=== PATIENT | female | born 1990 | race Caucasian/White ===

== ENCOUNTER 2018-07-08 17:23 | Emergency (ER) | payer OTHER ==
[~2018-07-08] VITALS: Ht 165.1 cm; Wt 86.5 kg
[2018-07-08 17:29] VITALS: BP 153/80; PULSE 68; RESP 17; Ht 165.1 cm; Wt 86.5 kg
--- NOTE | 2018-07-08 21:49 | ERD ---
ER Documentation Chief Complaint Chief Complaint X 1 day of deepika pelvic pain; states heavy menses yesterday HPI 28-year-old female presents for bilateral pelvic pain and heavy vaginal bleeding times 1 day. States that she was passing clots and has a change pads every 15 minutes. She does have a history of anemia, PCOS and is currently taking metformin and on clomiphene to get . She has been on this medication in the past. Denies any fevers or chills. She states that she has dizziness. The pelvic pain is noted to be 8 out of 10, intermittent. ROS All systems reviewed and are negative except as per history of present illness. Allergies Allergies: Coded Allergies: No Known Allergy (Unverified , 07/08/18) PMhx/Soc Medical and Surgical Hx: pt denies Medical Hx, pt denies Surgical Hx Physical Exam Vitals Vital Signs Date Temp Pulse Resp B/P (MAP) Pulse Ox O2 O2 Flow FiO2 Time Delivery Rate 07/08/18 99.0 68 17 153/80 100 17:29 (104) Physical Exam Const: No acute distress Resp: Clear to auscultation bilaterally Cardio: Regular rate and rhythm, no murmurs Abd: Soft, non distended. Normal bowel sounds, mild bilateral pelvic tenderness to palpation, no McBurney's point tenderness, no Adler sign, no rebound or guarding noted Skin: No petechiae or rashes Back: No midline or flank tenderness Ext: No cyanosis, or edema Neur: Awake and alert Psych: Normal Mood and Affect Result Diagram: 07/08/18200407/08/182004 Results 24 hrs Laboratory Tests Test 07/08/18 20:05 07/08/18 20:11 07/08/18 20:12 White Blood Count 12.2 10^3/ul Red Blood Count 4.03 10^6/ul Hemoglobin 10.8 g/dl Hematocrit 33.9 % Mean Corpuscular Volume 84.1 fl Mean Corpuscular Hemoglobin 26.8 pg Mean Corpuscular 31.9 g/dl Hemoglobin Concent Red Cell Distribution Width 14.0 % Platelet Count 319 10^3/UL Mean Platelet Volume 9.4 fl Immature Granulocytes % 0.500 % Neutrophils % 62.7 % Lymphocytes % 28.6 % Monocytes % 5.5 % Eosinophils % 2.2 % Basophils % 0.5 % Nucleated Red Blood Cells % 0.0 /100WBC Immature Granulocytes # 0.060 10^3/ul Neutrophils # 7.7 10^3/ul Lymphocytes # 3.5 10^3/ul Monocytes # 0.7 10^3/ul Eosinophils # 0.3 10^3/ul Basophils # 0.1 10^3/ul Nucleated Red Blood Cells # 0.0 10^3/ul Urine Color YELLOW Urine Clarity SLIGHTLY CLOUDY Urine pH 7.0 Urine Specific [place] 1.023 Urine Ketones NEGATIVE mg/dL Urine Nitrite NEGATIVE mg/dL Urine Bilirubin NEGATIVE mg/dL Urine Urobilinogen NEGATIVE mg/dL Urine Leukocyte Esterase TRACE Carly/ul Urine Microscopic RBC > 182 /HPF Urine Microscopic WBC 2 /HPF Urine Squamous Epithelial Cells FEW /HPF Urine Mucus FEW /HPF Urine Hemoglobin 3+ mg/dL Urine Glucose NEGATIVE mg/dL Urine Total Protein NEGATIVE mg/dl Sodium Level 142 mmol/L Potassium Level 3.7 mmol/L Chloride Level 103 mmol/L Carbon Dioxide Level 29 mmol/L Anion Gap 10 Blood Urea Nitrogen 18 mg/dl Creatinine 0.72 mg/dl Est Glomerular Filtrat > 60 mL/min Rate mL/min Glucose Level 95 mg/dl Calcium Level 9.7 mg/dl Total Bilirubin 0.3 mg/dl Direct Bilirubin 0.00 mg/dl Indirect Bilirubin 0.3 mg/dl Aspartate Amino Transf (AST/SGOT) 53 IU/L Alanine 60 IU/L Aminotransferase (ALT/SGPT) Alkaline Phosphatase 63 IU/L Total Protein 8.7 g/dl Albumin 4.9 g/dl Globulin 3.80 g/dl Albumin/Globulin Ratio 1.28 Bedside Urine pH (LAB) 7.0 Bedside Urine Protein (LAB) 1+ Bedside Urine Glucose (UA) Negative Bedside Urine Ketones (LAB) Negative Bedside Urine Blood 2+ Bedside Urine Nitrite (LAB) Negative Bedside Urine Leukocyte Esterase Trace (L POC Beta HCG, Qualitative NEGATIVE Procedures/MDM Medical Decision Making: Differential diagnosis includes but not limited to dysfunctional uterine bleeding, clomiphene side effect, uterine fibroid, ovarian cyst Patient appeared well on physical exam. There was some pelvic tenderness palpation. Patient did not want any pain medication while in the ER. CBC: no e/o of severe anemia, hemoglobin noted to be 10, mild elevated WBC 12 CMP: no e/o severe acidosis, alkalosis, renal failure, diabetic ketoacidosis, liver disease UA negative for infection Pelvic ultrasound was unremarkable, there is no ovarian cyst noted, no fibroids noted Patient advised that she will need to follow-up with [facility] as the vaginal bleeding could be due to medication side effect. Possibility of ovarian torsion was considered however the pain had improved while patient was in the ER without medication. Patient advised to follow up with PCP in 1-2 days. Patient advised to return to ED for new or worsening symptoms. Patient stable on discharge from the ED. Disclaimer: Inadvertent spelling and grammatical errors are likely due to EHR/dictation software use and do not reflect on the overall quality of patient care. Also, please note that the electronic time recorded on this note does not necessarily reflect the actual time of the patient encounter. Departure Diagnosis: Primary Impression: Vaginal bleeding Additional Impression: Acute pain in female pelvis Condition: Fair Patient Instructions: Understanding Uterine Bleeding Additional Instructions: Call your primary care doctor TOMORROW for an appointment during the next 1-2 days.See the doctor sooner or return here if your condition worsens before your appointment time. RODGER FERNÁNDEZ DO Jul 08, 2018 21:49
== END 2018-07-08 21:46 | disposition home or self-care (01) ==
LOC: FTE 17:23
DX: N93.9 Abnormal uterine and vaginal bleeding, unspecified (principal)
CPT/HCPCS: 36415; 76830; 76856; 80053; 81001; 81025; 85025; Z7502; 81003

== ENCOUNTER 2018-10-10 16:35 | Emergency (ER) | payer OTHER ==
[~2018-10-10] VITALS: Ht 167.6 cm; Wt 87.0 kg
[2018-10-10 16:44] VITALS: Ht 167.6 cm; Wt 87.0 kg
--- NOTE | 2018-10-10 18:31 | ERD ---
ER Documentation Chief Complaint Chief Complaint vagina bleeding bright red x1mth, unk if HPI 28-year-old female G1, P1, presents to the emergency department, complaining of 1 month with intermittent mild vaginal bleeding, associated with pelvic discomfort. The patient is currently on Clomiphene for infertility and has an appointment with her [facility] on 10/25/2018. The patient has history of anemia and PCOS as well. Additionally, the patient reports increased fatigue on exertion and palpitations. She denies chest pain, no shortness of breath, no distal weakness, no headache, no nausea or vomiting. ROS All systems reviewed and are negative except as per history of present illness. Allergies Allergies: Coded Allergies: No Known Allergy (Unverified , 07/08/18) PMhx/Soc Anemia Polycystic ovarian syndrome Medical and Surgical Hx: pt denies Surgical Hx History of Surgery: No Anesthesia Reaction: No Hx Neurological Disorder: No Hx Respiratory Disorders: No Hx Cardiac Disorders: No Hx Psychiatric Problems: No Hx Miscellaneous Medical Probl: No Hx Alcohol Use: No Hx Substance Use: No Hx Tobacco Use: No FmHx Family History: No diabetes, No coronary disease Physical Exam Vitals Vital Signs Date Temp Pulse Resp B/P (MAP) Pulse Ox O2 O2 Flow FiO2 Time Delivery Rate 10/10/18 98.2 105 18 121/65 100 Room Air 20:27 (83) 10/10/18 98.3 116 18 147/90 100 16:44 (109) Physical Exam Const: No acute distress, pale looking. Head: Atraumatic Eyes: Normal Conjunctiva ENT: Normal External Ears, Nose and Mouth. Neck: Full range of motion. No meningismus. Resp: Clear to auscultation bilaterally Cardio: Regular rate and rhythm, no murmurs Abd: Soft, non tender, non distended. Normal bowel sounds Skin: No petechiae or rashes Back: No midline or flank tenderness Ext: No cyanosis, or edema Neur: Awake and alert Psych: Normal Mood and Affect Result Diagram: 10/10/181917 Results 24 hrs Laboratory Tests Test 10/10/18 18:54 10/10/18 18:56 10/10/18 19:18 POC Beta HCG, Qualitative NEGATIVE Bedside Urine pH (LAB) 6.0 Bedside Urine Protein (LAB) 1+ Bedside Urine Glucose (UA) Negative Bedside Urine Ketones (LAB) Negative Bedside Urine Blood 3+ Bedside Urine Nitrite (LAB) Negative Bedside Urine Leukocyte Esterase (L Negative White Blood Count 10.1 10^3/ul Red Blood Count 2.47 10^6/ul Hemoglobin 5.8 g/dl Hematocrit 19.2 % Mean Corpuscular Volume 77.7 fl Mean Corpuscular Hemoglobin 23.5 pg Mean Corpuscular Hemoglobin Concent 30.2 g/dl Red Cell Distribution Width 14.3 % Platelet Count 363 10^3/UL Mean Platelet Volume 9.6 fl Immature Granulocytes % 1.600 % Neutrophils % % Segmented Neutrophils % (Manual) 63 % Lymphocytes % % Lymphocytes % (Manual) 35 % Monocytes % % Monocytes % (Manual) 2 % Eosinophils % % Basophils % % Nucleated Red Blood Cells % 1 % Immature Granulocytes # 0.160 10^3/ul Neutrophils # 10^3/ul Lymphocytes (Manual) 3.5 10^3/ul Lymphocytes # 10^3/ul Monocytes # 10^3/ul Monocytes # (Manual) 0.2 10^3/ul Eosinophils # 10^3/ul Basophils # 10^3/ul Nucleated Red Blood Cells # 10^3/ul Pathologist Review (Hematology) YES Polychromasia 1+ Anisocytosis 3+ Microcytosis 3+ Target Cells 1+ Procedures/MDM Vital signs stable, Physical exam unremarkable, abdomen soft, nontender. Patient hemodynamically stable despite profound anemia. Differential diagnosis include but not limited to: , ovarian cyst, fibroids, endometriosis, malignancy, dysfunctional bleeding, hematologic condition. Low suspicion for PID, no signs of hypovolemic shock. Pertinent Data: test: Negative Labs: CBC: Profound anemia. Physical examination and clinical presentation consistent most likely with symptomatic anemia most likely secondary dysfunctional uterine bleeding. During the ED course the patient remained stable, no new complaints. The patient is a candidate for a blood transfusion; however, at this time, she prefers to deferred the transfusion, she will talk to her and she will come back to the hospital in case that they agree with the procedure. The risks and possible medical complications of severe anemia were discussed with the patient in front of her mother. Results and clinical impression discussed with patient. The patient is stable to be treated outpatient and will be discharged home with instructions to return to the ER for transfusion. Instructions explained and given directly by me to the patient with ack nowledgment and demonstrated understanding. Disclaimer: Inadvertent spelling and grammatical errors are likely due to EHR/dictation software use and do not reflect on the overall quality of patient care. Also, please note that the electronic time recorded on this note does not necessarily reflect the actual time of the patient encounter. Departure Diagnosis: Primary Impression: Abnormal uterine bleeding Additional Impression: Symptomatic anemia Condition: Stable Patient Instructions: Anemia Additional Instructions: Thank you very much for allowing us to participate in your care. Your health and safety is our top priority at [facility]. Please remember that your hemoglobin is very low and you need a transfusion to improve your symptoms, we understand that you are not ready today, but please, consider to return tomorrow for a blood transfusion. The evaluation in the emergency department has been done to rule out an acute emergency. Chronic, [id number] conditions may have not been evaluated; therefore, you need to follow up with a primary care provider in the next 48h. If symptoms persist, worsen or new symptoms develop, then patient should return to the ED immediately. Call your primary care doctor TOMORROW for an appointment during the next 2-4 days and bring all the information provided. If the symptoms get worse and your provider is unavailable, return to the Emergency Department immediately. CAMELIA PERES MD Oct 10, 2018 18:31
[2018-10-10 20:27] VITALS: BP 121/65; PULSE 105; RESP 18
== END 2018-10-10 20:28 | disposition home or self-care (01) ==
LOC: FTE 16:35
DX: N93.8 Other specified abnormal uterine and vaginal bleeding (principal); D64.9 Anemia, unspecified
CPT/HCPCS: 76830; 76856; 81003; 81025; 85025; Z7502

== ENCOUNTER 2018-10-12 18:50 | Emergency (ER) | payer SELFPAY ==
[~2018-10-12] VITALS: Ht 165.1 cm; Wt 89.1 kg
[2018-10-12 18:59] VITALS: BP 149/67; PULSE 131; RESP 16; Ht 165.1 cm; Wt 89.1 kg
[2018-10-13] MEDS ORDERED: FER325 PO (13:40)
== END 2018-10-12 21:44 | disposition left against medical advice (07) ==
LOC: E/R 18:50
DX: Z53.21 Procedure and treatment not carried out due to patient leaving prior to being seen by health care provider (principal)

== ENCOUNTER 2018-10-13 06:56 | Emergency (ER) | payer OTHER ==
[~2018-10-13] VITALS: Ht 165.1 cm; Wt 89.0 kg
[2018-10-13 07:01] VITALS: Ht 165.1 cm; Wt 89.0 kg
[2018-10-13] MEDS ORDERED: SOD CHLORIDE 0.9% 0 ML IV ONE (07:50)
--- NOTE | 2018-10-13 08:10 | ERD ---
ER Documentation Chief Complaint Chief Complaint send by pmd for blood transfusion, hgb 7.4, feels weak HPI 28-year-old female who presents to the emergency room complaining of menorrhagia with a reported hemoglobin in the 5 range. The patient has been feeling signs and symptoms consistent with anemia including dyspnea on exertion, generalized fatigue and malaise. She notes heavy menstrual cycle over the last 1-2 cycles. It has been irregular. The patient was trying Clomid but has since discontinued this. The patient states no further vaginal bleeding over the past 24 to 48 hours. ROS All systems reviewed and are negative except as per history of present illness. Medications Home Meds Active Scripts Ferrous Sulfate* (Ferrous Sulfate*) 325 Mg Tabec, 325 MG PO DAILY for 30 Days, TAB Prov:SALLIE MCCORMICK MD 10/13/18 Allergies Allergies: Coded Allergies: No Known Allergy (Unverified , 10/13/18) PMhx/Soc Medical and Surgical Hx: pt denies Medical Hx, pt denies Surgical Hx History of Surgery: No Anesthesia Reaction: No Hx Neurological Disorder: No Hx Respiratory Disorders: No Hx Cardiac Disorders: No Hx Psychiatric Problems: No Hx Miscellaneous Medical Probl: No Hx Alcohol Use: No Hx Substance Use: No Hx Tobacco Use: No Smoking Status: Never smoker FmHx Family History: No diabetes Physical Exam Vitals Vital Signs Date Temp Pulse Resp B/P (MAP) Pulse Ox O2 O2 Flow FiO2 Time Delivery Rate 10/13/18 98.1 102 18 122/57 99 Room Air 07:19 (78) 10/13/18 98.1 102 18 122/57 99 07:01 (78) Physical Exam General: Well developed, well nourished, no acute distress Head: Normocephalic, atraumatic. Eyes: Pupils equally reactive, EOM intact, pale conjunctiva ENT: Moist mucous membranes Neck: Supple, no lymphadenopathy Respiratory: Lungs clear bilaterally, no distress Cardiovascular: RRR, no murmurs, rubs, or gallops Abdominal: Soft, non-tender, non-distended, no peritoneal signs : Deferred MSK: No edema, no unilateral swelling, 5/5 strength Neurologic: Alert and oriented, moving all extremities, normal speech, no focal weakness, no cerebellar signs Skin: No rash Psych: Normal mood Result Diagram: 10/13/1873810/13/18738 Results 24 hrs Laboratory Tests Test 10/13/18 07:39 10/13/18 08:38 White Blood Count 11.4 10^3/ul Red Blood Count 2.50 10^6/ul Hemoglobin 5.6 g/dl Hematocrit 19.5 % Mean Corpuscular Volume 78.0 fl Mean Corpuscular Hemoglobin 22.4 pg Mean Corpuscular Hemoglobin Concent 28.7 g/dl Red Cell Distribution Width 14.8 % Platelet Count 376 10^3/UL Mean Platelet Volume 9.2 fl Immature Granulocytes % 2.600 % Neutrophils % 59.3 % Segmented Neutrophils % (Manual) 64 % Band Neutrophils % (Manual) 1 % Lymphocytes % 29.1 % Lymphocytes % (Manual) 29 % Monocytes % 5.4 % Monocytes % (Manual) 2 % Eosinophils % 3.2 % Eosinophils % (Manual) 2 % Basophils % 0.4 % Basophils % (Manual) 2 % Nucleated Red Blood Cells % 1.2 /100WBC Immature Granulocytes # 0.290 10^3/ul Neutrophils # 6.7 10^3/ul Neutrophils # (Manual) 7.3 10^3/ul Band Neutrophils # 0.1 10^3/ul Lymphocytes (Manual) 3.3 10^3/ul Lymphocytes # 3.3 10^3/ul Monocytes # 0.6 10^3/ul Monocytes # (Manual) 0.2 10^3/ul Eosinophils # 0.4 10^3/ul Basophils # 0.1 10^3/ul Basophils # (Manual) 0.2 10^3/ul Nucleated Red Blood Cells # 0.1 10^3/ul Pathologist Review (Hematology) YES Platelet Estimate NORMAL Polychromasia 3+ Hypochromasia 1+ Anisocytosis 3+ Microcytosis 3+ Prothrombin Time 12.7 Sec Prothrombin Time Ratio 1.0 INR International Normalized Ratio 0.94 Activated Partial Thromboplast Time 25.9 Sec Sodium Level 142 mmol/L Potassium Level 4.0 mmol/L Chloride Level 105 mmol/L Carbon Dioxide Level 24 mmol/L Anion Gap 13 Blood Urea Nitrogen 9 mg/dl Creatinine 0.59 mg/dl Est Glomerular Filtrat Rate mL/min > 60 mL/min Glucose Level 109 mg/dl Calcium Level 8.7 mg/dl POC Beta HCG, Qualitative NEGATIVE Current Medications Medications Dose Sig/Cade Start Time Status Last (Trade) Ordered Route PRN Stop Time Admin Dose Reason Admin Sodium 0 ml @ 0 Q0M ONCE 10/13/18 DC Chloride mls/hr IV 07:50 10/13/18 07:52 Procedures/MDM Oh LAB INTERPRETATION: I reviewed the laboratory testing and it shows anemia MEDICAL DECISION MAKING: Patient presents with symptomatic anemia in the setting of menorrhagia and irregular cycle. Unclear if truly related to the Clomid or alternative dysmenorrhea process. Anovulatory cycle possible. Patient has outpatient follow-up with [facility] in 2 weeks but is presenting because of persistent anemia. Patient was seen here on 10 10 for similar symptoms but refused transfusion at that time. She wanted a second opinion follow-up with her primary care physician. ER COURSE: * Patient's hemoglobin is 5.5 today. * I discussed with the patient and/or family the risks, benefits, alternatives of blood transfusion. This includes allergic reaction and infections including HIV and hepatitis. The patient and/or family were able to verbalize these risks, stated understanding. A document has been signed and placed in the chart. * The patient will be transfused 2 units of packed red blood cells. The patient feels strongly about not being admitted today. I will see if the patient can be evaluated by [facility] in the emergency room setting. She can receive 2 units of packed red blood cells and be safely discharged of transfusing as well. Patient understands the risk benefits alternatives and that the preferred method would be inpatient hospitalization but given the holiday she feels strongly about discharge. She understands the risk benefits and alternatives. I believe this can be an appropriate plan. * [facility] on-call Dr. Valdez notified. CONSULTATION: None DISPOSITION PLAN: Patient is finishing her second unit of packed red blood cells. Dr. Valdez is going to see the patient after surgical responsibilities. Anticipate discharge based on her assessment. Departure Diagnosis: Primary Impression: Symptomatic anemia Additional Impression: Menorrhagia Menorrahagia type: with irregular cycle Qualified Codes: N92.1 - Excessive and frequent menstruation with irregular cycle Condition: SALLIE Parks MD Oct 13, 2018 08:10
[2018-10-13] MEDS ORDERED: FER325 PO (13:40)
--- NOTE | 2018-10-13 16:20 | CONS ---
Assessment/Plan Assessment/Plan Problems: (1) Vaginal bleeding Status: Acute (2) Menorrhagia Status: Acute Qualifiers: Qualified Codes: N92.1 - Excessive and frequent menstruation with irregular cycle (3) Symptomatic anemia Status: Acute Assessment/Plan (Daily) Severe anemia due to continuous menometrorrhagia symptoms likely due to Hormonal factors and anovulatory cycles Patient does not have any active bleeding at this time. Her symptoms of anemia improved significantly after she received blood transfusion Patient is currently stable for discharge after blood transfusion considering her hemoglobin increased appropriately I discussed with the patient regarding taking OCP continuously for menstrual suppression After discharge from the emergency room The patient to take Loestrin continuously. Prescription was provided. Advised to take iron and stool softener twice a day. Recommended to have a follow-up after discharge from the hospital next week with her OB or sooner as needed Patient verbalized understanding. All questions were answered. Consultation Date/Type/Reason Admit Date/Time October 13, 2018 Date of Consultation: Oct 13, 2018 Type of Consult Gynecology consultation symptomatic anemia menometrorrhagia Reason for Consultation Severe anemia due to menometrorrhagia Date/Time of Note DATE: 10/13/18 TIME: 16:05 Hx of Present Illness 28-year-old G1, P1 presented to emergency room after she was referred by her primary care physician due to severe anemia. This is her second visit to emergency room. She had been seen last week due to heavy vaginal bleeding and menometrorrhagia. She refused blood transfusion at that time and was discharged home. Patient reports history of polycystic ovarian syndrome. Reports history of oligomenorrhea. She was diagnosed with PCOS and was given Metformin and Clomid for induction of ovulation since she desires fertility. Has been trying for for the last 1 and half years with no success. Reports stopped Clomid since August 2018 and stopped metformin since December. She never diagnosed with diabetes. Patient reports has been bleeding for the last month continuously every day. Has been soaking pads 4-5 pads a day. She reports was feeling fatigue and shortness of breath however his symptoms resolved after she received blood transfusion. Patient declined admission but agreed to proceed with blood transfusion. Patient has a APPLICATION MANAGER is outside that has been following with. Denies any known history of thyroid problem in the past. Cycles in the past was every 35 days last about 7 to 8 days with heavy flow. She denies any history of ovarian cyst, fibroids. Had a pelvic ultrasound in her prior presentation in the emergency room that showed homogeneous slightly thickened endometrium with normal ovaries otherwise nonsignificant. Patient currently denies any pelvic pain, abnormal vaginal discharge she reports her symptoms of anemia including fatigue. Significantly improved after she received blood transfusion. She reports her bleeding currently decreased. Subjective hx not possible: other (Patient is well historian. Speaks fluent Uzbek.) Constitutional: improved Eyes: No no complaints, No pain, No discharge, No redness, No visual change, No other ENT: No no complaints, No bleeding, No pain, No congestion, No discharge, No dysphagia, No sore throat, No other Respiratory: No no complaints, No pain, No cough, No pleuritic pain, No shortness of breath, No sputum, No wheezing, No other Cardiovascular: lightheadedness; No no complaints, No chest pain, No edema, No orthopenea, No palpitations, No paroxysmal nocturnal dyspnea, No other Gastrointestinal: No no complaints, No pain, No blood, No constipation, No decreased appetite, No diarrhea, No flatus, No nausea, No passing stool, No vomiting, No other Genitourinary: bleeding; No no complaints, No dysuria, No discharge, No flank pain, No hematuria, No other Musculoskeletal: No no complaints, No back pain, No bone/joint pain, No neck pain, No restricted range of motion, No swelling, No other Skin: No no complaints, No bruising, No erythema, No laceration, No pruritis, No rash, No skin lesions, No other Neurologic: No no complaints, No confusion, No dizziness, No focal-weakness, No headache, No syncope, No seizure, No other Endocrine: No no complaints, No polyuria, No polydypsia, No dry skin, No temp intolerance, No other Lymphatic: No no complaints, No adenopathy, No tender nodes, No lymphadema, No other Psychological: No no complaints, No nl mood/affect, No anxiety, No confusion, No depression, No suicidal, No other Immunologic: No no complaints, No immunodeficiency, No pruritis, No rhinitis, No urticaria, No other Past Medical History Obesity History of polycystic ovarian syndrome Home Meds Active Scripts Ferrous Sulfate* (Ferrous Sulfate*) 325 Mg Tabec, 325 MG PO DAILY for 30 Days, TAB Prov:SALLIE MCCORMICK MD 10/13/18 Allergies: Coded Allergies: No Known Allergy (Unverified , 10/13/18) Past Surgical History Past Surgical Hx: no surgical history Family History Significant Family History: no pertinent family hx Social History Alcohol Use: none Smoking Status: Never smoker Drug Use: none Exam/Review of Systems Exam Vitals Vital Signs Date Temp Pulse Resp B/P (MAP) Pulse Ox O2 O2 Flow FiO2 Time Delivery Rate 10/13/18 98.6 97 18 129/85 100 Room Air 15:45 (100) Constitutional: alert, oriented, well developed Psych: no complaints, nl mood/affect Head: normocephalic, atraumatic Eyes: nl conjunctiva, EOMI ENMT: nl external ears & nose, nl lips & teeth Neck: supple Respiratory: clear to auscultation, normal air movement Cardiovascular: regular rate and rhythm, nl pulses Gastrointestinal: soft, nl liver, spleen, non-tender Genitourinary - Female: nl adnexae, other (SSE: Cervix appears normal. no abnormal vaginal dishcarge. BME: uterus normal size, non tender,) Extremities: normal pulses Neurological: LOAN REVIEWER II-XII intact, nl mental status, nl speech Skin: nl turgor, rash or lesions Results Result Diagram: 10/13/18 0739 10/13/18 0739 Results 24hrs Laboratory Tests Test 10/13/18 07:39 10/13/18 08:38 White Blood Count 11.4 H Red Blood Count 2.50 L Hemoglobin 5.6 *L Hematocrit 19.5 L Mean Corpuscular Volume 78.0 L Mean Corpuscular Hemoglobin 22.4 L Mean Corpuscular Hemoglobin Concent 28.7 L Red Cell Distribution Width 14.8 H Platelet Count 376 Mean Platelet Volume 9.2 Immature Granulocytes % 2.600 H Neutrophils % 59.3 Segmented Neutrophils % (Manual) 64 Band Neutrophils % (Manual) 1 Lymphocytes % 29.1 Lymphocytes % (Manual) 29 Monocytes % 5.4 Monocytes % (Manual) 2 Eosinophils % 3.2 Eosinophils % (Manual) 2 Basophils % 0.4 Basophils % (Manual) 2 Nucleated Red Blood Cells % 1.2 H Immature Granulocytes # 0.290 H Neutrophils # 6.7 Neutrophils # (Manual) 7.3 Band Neutrophils # 0.1 Lymphocytes (Manual) 3.3 H Lymphocytes # 3.3 H Monocytes # 0.6 Monocytes # (Manual) 0.2 L Eosinophils # 0.4 Basophils # 0.1 Basophils # (Manual) 0.2 H Nucleated Red Blood Cells # 0.1 H Pathologist Review (Hematology) YES Platelet Estimate NORMAL Polychromasia 3+ Hypochromasia 1+ Anisocytosis 3+ Microcytosis 3+ Prothrombin Time 12.7 Prothrombin Time Ratio 1.0 INR International Normalized Ratio 0.94 Activated Partial Thromboplast Time 25.9 Sodium Level 142 Potassium Level 4.0 Chloride Level 105 Carbon Dioxide Level 24 Anion Gap 13 Blood Urea Nitrogen 9 Creatinine 0.59 Est Glomerular Filtrat Rate mL/min > 60 Glucose Level 109 Calcium Level 8.7 POC Beta HCG, Qualitative NEGATIVE Imaging Imaging PROCEDURE: US Pelvis. CLINICAL INDICATION: Vaginal bleeding TECHNIQUE: Multiple sonographic images of the pelvis were obtained utilizing transabdominal and endovaginal technique. The images were reviewed on a PACS workstation. COMPARISON: US PELVIS 07/08/2018 FINDINGS: The uterus is normal in size with a normal appearance of the myometrium. The uterus measures 9.6 x 4.9 x 6.1 cm. The endometrial stripe is homogeneous in appearance and has the thickness of 16 mm. The ovaries are normal in size and echogenicity. Normal Doppler flow is identified in both ovaries. The right ovary measures 4.1 x 2.3 x 2.6 cm. The left ovary measures 4.6 x 3.1 x 3.3 cm. No free fluid is present within the pelvis. RPTAT: AA IMPRESSION: Slightly thickened endometrium. Otherwise unremarkable. LUIS FERNANDO COLON MD Oct 13, 2018 16:17
--- NOTE | 2018-10-13 16:30 | EN ---
Date/Time of Note Date/Time of Note DATE: 10/13/18 TIME: 16:28 ER Progress Note TIME: 15:30. 28-year-old female with severe anemia and menometrorrhagia. Transfusion of 2 units of packed red blood cells completed without complication. Doing well. Asymptomatic. Patient evaluated in the ED by Dr. Valdez; prescriptions for hormone therapy given. Stable for discharge with precautionary instructions and outpatient follow-up. JAIME BALDERRAMA MD Oct 13, 2018 16:30
[2018-10-13 16:35] VITALS: BP 132/73; PULSE 98; RESP 18
== END 2018-10-13 17:14 | disposition home or self-care (01) ==
LOC: E/R 06:56
DX: D64.9 Anemia, unspecified (principal); N92.1 Excessive and frequent menstruation with irregular cycle
CPT/HCPCS: 36415; 36430; 80048; 81025; 85025; 85610; 85730; 86850; 86900; 86901; 86920; J7040; P9016; Z7502; Z7610

== ENCOUNTER 2018-11-24 11:08 | Emergency (ER) | payer OTHER ==
[~2018-11-24] VITALS: Ht 165.1 cm; Wt 88.2 kg
[~2018-11-24 11:08] MED LIST: FER325 PO; MEDR5TAB PO
[2018-11-24 11:27] VITALS: Ht 165.1 cm; Wt 88.2 kg
[2018-11-24 13:47] VITALS: BP 154/81; PULSE 98; RESP 18
--- NOTE | 2018-11-24 13:57 | ERD ---
ER Documentation Chief Complaint Chief Complaint VAGINAL BLEEDING X3 MONTH - RECEIVED BT OCTOBER 13 HPI 28-year-old female presents with vaginal bleeding x3 months. Patient states she had intermittent bleeding that is progressively worsening. She did need a blood transfusion a month and a half ago. She is currently on control with no alleviation of symptoms. She has tried to follow-up with her OB with no help. Patient denies any pelvic pain at this time. She is currently taking Loestrin and iron. ROS All systems reviewed and are negative except as per history of present illness. Medications Home Meds Active Scripts Medroxyprogesterone Acetate* (Provera*) 5 Mg Tablet, 5 MG PO DAILY, #10 TAB Prov:SARA SKINNER PA-C 11/24/18 Ferrous Sulfate* (Ferrous Sulfate*) 325 Mg Tabec, 325 MG PO DAILY for 30 Days, TAB Prov:SALLIE MCCORMICK MD 10/13/18 Allergies Allergies: Coded Allergies: No Known Allergy (Unverified , 10/13/18) PMhx/Soc History of Surgery: No Anesthesia Reaction: No Hx Neurological Disorder: No Hx Respiratory Disorders: No Hx Cardiac Disorders: No Hx Psychiatric Problems: No Hx Miscellaneous Medical Probl: Yes (blood transfusion,anemia) Hx Alcohol Use: No Hx Substance Use: No Hx Tobacco Use: No Smoking Status: Never smoker FmHx Family History: No diabetes, No coronary disease, No other Physical Exam Vitals Vital Signs Date Temp Pulse Resp B/P (MAP) Pulse Ox O2 O2 Flow FiO2 Time Delivery Rate 11/24/18 98 18 154/81 100 Room Air 13:47 (105) 11/24/18 97.9 102 24 164/80 100 11:27 (108) Physical Exam GENERAL: The patient is well-appearing, well-nourished, in no acute distress HEENT: Atraumatic. Conjunctivae are pink. Pupils equal, round, and reactive to light. There is no scleral icterus. Tympanic membranes clear bilaterally. Oropharynx clear. CHEST: Clear to auscultation bilaterally. There are no rales, wheezes or rhonchi. HEART: Regular rate and rhythm. No murmurs, clicks, rubs or gallops. EXTREMITIES: Equal pulses bilaterally. There is no peripheral clubbing, cyanosis or edema. No focal swelling or erythema. Full range of motion. Grossly neurovascularly intact. NEUROLOGIC: Alert and oriented. Cranial nerves II through XII intact. Motor strength in all 4 extremities with 5 out of 5 strength. Sensation grossly intact. Normal speech and gait. SKIN: There is no apparent rash or petechiae. The skin is warm and dry. Result Diagram: 11/24/18 1155 11/24/18 1155 Results 24 hrs Laboratory Tests Test 11/24/18 11:55 11/24/18 12:05 White Blood Count 10.6 10^3/ul Red Blood Count 3.81 10^6/ul Hemoglobin 10.3 g/dl Hematocrit 33.8 % Mean Corpuscular Volume 88.7 fl Mean Corpuscular Hemoglobin 27.0 pg Mean Corpuscular Hemoglobin Concent 30.5 g/dl Red Cell Distribution Width 18.0 % Platelet Count 329 10^3/UL Mean Platelet Volume 9.8 fl Immature Granulocytes % 1.000 % Neutrophils % 64.7 % Lymphocytes % 26.2 % Monocytes % 5.0 % Eosinophils % 2.4 % Basophils % 0.7 % Nucleated Red Blood Cells % 0.0 /100WBC Immature Granulocytes # 0.110 10^3/ul Neutrophils # 6.8 10^3/ul Lymphocytes # 2.8 10^3/ul Monocytes # 0.5 10^3/ul Eosinophils # 0.3 10^3/ul Basophils # 0.1 10^3/ul Nucleated Red Blood Cells # 0.0 10^3/ul Urine Color YELLOW Urine Clarity CLOUDY Urine pH 5.0 Urine Specific [place] 1.014 Urine Ketones NEGATIVE mg/dL Urine Nitrite NEGATIVE mg/dL Urine Bilirubin NEGATIVE mg/dL Urine Urobilinogen NEGATIVE mg/dL Urine Leukocyte Esterase TRACE Carly/ul Urine Microscopic RBC > 182 /HPF Urine Microscopic WBC 0 /HPF Urine Squamous Epithelial Cells MODERATE /HPF Urine Hemoglobin 3+ mg/dL Urine Glucose NEGATIVE mg/dL Urine Total Protein 1+ mg/dl Sodium Level 139 mmol/L Potassium Level 4.0 mmol/L Chloride Level 102 mmol/L Carbon Dioxide Level 24 mmol/L Anion Gap 13 Blood Urea Nitrogen 11 mg/dl Creatinine 0.57 mg/dl Est Glomerular Filtrat Rate mL/min > 60 mL/min Glucose Level 81 mg/dl Calcium Level 9.7 mg/dl Total Bilirubin 0.3 mg/dl Direct Bilirubin 0.00 mg/dl Indirect Bilirubin 0.3 mg/dl Aspartate Amino Transf (AST/SGOT) 33 IU/L Alanine Aminotransferase (ALT/SGPT) 34 IU/L Alkaline Phosphatase 49 IU/L Total Protein 8.2 g/dl Albumin 4.6 g/dl Globulin 3.60 g/dl Albumin/Globulin Ratio 1.27 Lipase 42 U/L POC Beta HCG, Qualitative NEGATIVE Procedures/MDM MDM: 28-year-old female presenting with vaginal bleeding. I have low suspicion for hemodynamic instability and do not feel patient requires transfusion at this time. Patient has findings consistent with metromenorrhagia and will be treated with additional hormone therapy. Patient is recommended to follow-up with OB as medical management is required. Patient does not want an ultrasound today as she had one recently and denies any pelvic pain. Denies any medical problems. NKDA. Surgical history denies. Social history denies Departure Diagnosis: Primary Impression: Vaginal bleeding Condition: Stable Patient Instructions: Menorrhagia Referrals: RODGER ROJO MD (PCP) DINKEY SKINNER [place] [address] [facility] [address] [place] [address] [facility] [address] [place] [place] [id number] [facility] [address] [place] [address] AIDA MENDOZALEXIE [address] [facility], [address], [facility] [address] [address] [address] [place] [address] [facility] [place] [address] [place] [address] [address] [facility] [id number] - JENNIFER IBARRA [address], [facility] [address] [address] AQUINO, ROBERTO [address] [facility]. [address], [place] [address] [address] [address] [place] [address] Additional Instructions: FOLLOW UP WITH YOUR PRIMARY CARE PHYSICIAN TOMORROW.Return to this facility if you are not improving as expected. SARA SKINNER PA-C Nov 24, 2018 13:57
== END 2018-11-24 14:12 | disposition home or self-care (01) ==
LOC: FTE 11:08
DX: N93.9 Abnormal uterine and vaginal bleeding, unspecified (principal)
CPT/HCPCS: 36415; 80053; 81001; 81025; 83690; 85025; Z7502; 99283